=== PATIENT | female | born 1945 | race Two or more races ===

== ENCOUNTER 2024-01-30 13:30 | Inpatient (IN) | payer MEDICARE, OTHER ==
[~2024-01-30] VITALS: Ht 160 cm; Wt 72.4 kg
[~2024-01-30 13:30] MED LIST: CHOL50004 PO; FERR1TAB8 PO; FURO40TA4 PO; PANT40T PO; POTA8TAB38 PO; SPIR25TA8 PO
[2024-01-30] MEDS: ONDANSETRON HCL 4 MG/2 ML VIAL IV ONE (14:15)
[2024-01-30] MEDS: ACETAMINOPHEN 325 MG TAB PO ONE (14:15)
[2024-01-30 15:30] LABS: Urine Bacteria None Seen /hpf (None Seen)
[2024-01-30 15:38] LABS: Urine Blood Negative /uL (Negative); Urine Clarity Clear (Clear); Urine Color Orange (Yellow); Urine Hyaline Cast FEW /lpf (0 - 2); Urine Mucus FEW (None Seen); Urine Protein, UAD TRACE (Negative); Urine Urobilinogen Normal (Negative); Urine WBC 7 /hpf (0 - 5); Urine pH 5.5 (5.0-9.0)
--- NOTE | 2024-01-30 15:40 | ED.PDOC ---
General HPI Comments 78Y F with PMHx DM, CHF, HTN, PNA, cirrhosis, and gallstones presents to ED for chief complaint urinary frequency. Per pt's , pt has been unable to sleep due to going to the bathroom every hour to urinate. Additional symptoms include weakness and body pain. Pt has been experiencing the symptoms for a few weeks but they have worsened in the last few days. Per , pt is unable to get out of bed without help. Pt's also states that he hears fluid in the lungs while pt is sleeping. Chief Complaint: Urinary Time Seen by MD: 14:00 Primary Care Provider: NATHALIA Conner notes: Medications, Allergies Allergies: Coded Allergies: Tetanus Toxoids (Verified Allergy, Unknown, 01/30/24) Information Source: Patient, Spouse Mode of Arrival: Wheelchair Severity: Moderate Inability to void: None Timing: Weeks Duration: Since onset Onset: Spontaneous Symptoms: Frequency History of: None Location: None Modifying factors: None associated signs and symptoms: Frequency, Other Past Medical History PAST MEDICAL HISTORY: CHF, DM, Gallstones, HTN, Liver Past Medical History (Other): pneumonia Surgical History: Denies all surgeries DEPUTY CLERK History: No Pertinent DEPUTY CLERK History Family History Family History: Family hx of DM, Family hx of heart linus Social History Smoker: Non-Smoker Alcohol: Denies ETOH Use Drugs: Denies Drug Use Lives In: Home Constitutional: reports: weakness, others (body pains); denies: chills, diaphoresis, fatigue, fever, malaise, sweats EENTM: denies: blurred vision, double vision, ear bleeding, ear discharge, ear drainage, ear pain, ear ringing, eye pain, eye redness, hearing loss, mouth pain, mouth swelling, nasal discharge, nose bleeding, nose congestion, nose pain, photophobia, tearing, throat pain, throat swelling, voice changes, others Respiratory: denies: cough, hemoptysis, orthopnea, SOB at rest, shortness of breath, SOB with excertion, stridor, wheezing, others Cardiovascular: denies: chest pain, dizzy spells, diaphoresis, Dyspnea on exertion, edema, irregular heart beat, left arm pain, lightheadedness, palpitations, PND, syncope, others Gastrointestinal: denies: abdomen distended, abdominal pain, blood streaked bowels, constipated, diarrhea, dysphagia, difficulty swallowing, hematemesis, melena, nausea, poor appetite, poor fluid intake, rectal bleeding, rectal pain, vomiting, others Genitourinary: reports: frequency, others (nocturia); denies: abnormal vagina bleeding, burning, dyspareunia, dysuria, flank pain, hematuria, incontinence, pain, , vagina discharge, urgency Neurological: denies: dizziness, fainting, headache, left sided numbness, left sided weakness, numbness, paresthesia, pre-existing deficit, right sided num bness, right sided weakness, seizure, speech problems, tingling, tremors, weakness, others Musculoskeletal: denies: back pain, gout, joint pain, joint swelling, muscle pain, muscle stiffness, neck pain, others Integumetry: denies: bruises, change in color, change in hair/nails, dryness, laceration, lesions, lumps, rash, wounds, others Allergic/Immunocompromised: denies: Difficulty Healing, Frequent Infections, Hives, Itching, others Hematologic/Lymphatic: denies: anemia, blood clots, easy bleeding, easy bruising, swollen glands, others Endocrine: denies: excessive hunger, excessive sweating, excessive thirst, excessive urination, flushing, intolerance to cold, intolerance to heat, unexplained weight gain, unexplained weight loss, others Psychiatric: denies: anxiety, bipolar disorder, depression, hopeless, panic disorder, schizophrenia, sleepless, suicidal, others All Other Systems: Reviewed and Negative Physical Exam General Appearance: No Apparent Distress, Normal HEENT: Normal ENT Inspection, Pharynx Normal, TMs Normal Neck: Full Range of Motion, Non-Tender, Normal, Normal Inspection Respiratory: Chest Non-Tender, Lungs Clear, No Accessory Muscle Use, No Respiratory Distress, Normal Breath Sounds Cardiovascular: No Edema, No JVD, No Murmur, No Gallop, Normal Peripheral Pulses, Regular Rate/Rhythm Breast Exam: Deferred Gastrointestinal: No Organomegaly, Non Tender, No Pulsatile Mass, Normal Bowel Sounds, Soft Genitalia: Deferred Pelvic: Deferred Rectal: Deferred Extremities: No calf tenderness, Normal capillary refill, Normal inspection, Normal range of motion, Non-tender, No pedal edema Musculoskeletal : Apperance: Normal Neurologic: Alert, electroplating technician II-XII nml as Tested, No Motor Deficits, Normal Affect, Normal Mood, No Sensory Deficits Cerebellar Function: NOT DONE Reflexes: NOT DONE Skin: Dry, Normal Color, Warm Lymphatic: No Adenopathy Was a procedure done? Was a procedure done?: No Differential Diagnosis Kidney stone (Female): Urinary obstruction, Urolithiasis Kidney stone (Male): N/A Penile/Scrotal: N/A Urinary Problem (Male): N/A Urinary Problem (Female): UTI X-Ray, Labs, Meds, VS Vital Signs Date Time Temp Pulse Resp B/P (MAP) Pulse Ox O2 Delivery O2 Flow Rate FiO2 01/30/24 13:57 72 01/30/24 13:50 98.8 72 16 103/47 (65) 96 Lab Test 01/30/24 15:32 01/30/24 13:52 01/30/24 13:50 Range/Units White Blood Count 5.7 4.4-10.8 10^3/uL Red Blood Count 3.94 L 4.0-5.20 10^6/uL Hemoglobin 13.7 12.2-16.2 g/dL Hematocrit 39.0 36.0-46.0 % Mean Corpuscular Volume 99.0 80.0-100.0 fL Mean Corpuscular Hemoglobin 34.8 H 28.0-32.0 pg Mean Corpuscular Hemoglobin Concent 35.1 32.0-36.0 g/dL Red Cell Distribution Width 16.1 H 11.8-14.3 % Platelet Count 59 L 140-450 10^3/uL Mean Platelet Volume 9.0 6.9-10.8 fL Neutrophils (%) (Auto) 76.2 37.0-80.0 % Lymphocytes (%) (Auto) 16.7 10.0-50.0 % Monocytes (%) (Auto) 5.5 0.0-12.0 % Eosinophils (%) (Auto) 1.1 0.0-7.0 % Basophils (%) (Auto) 0.5 0.0-2.0 % Neutrophils # (Auto) 4.3 1.6-8.6 10 ^3/uL Lymphocytes # (Auto) 0.9 0.4-5.4 10 ^3/uL Monocytes # (Auto) 0.3 0-1.3 10 ^3/uL Eosinophils # (Auto) 0.1 0-0.8 10 ^3/uL Basophils # (Auto) 0 0-0.2 10 ^3/uL Nucleated Red Blood Cells 0.2 % Sodium Level 140 136-145 mmol/L Potassium Level 3.5 3.5-5.1 mmol/L Chloride Level 106 98-107 mmol/L Carbon Dioxide Level 25 20-31 mmol/L Anion Gap 9 5-15 Blood Urea Nitrogen 16 9-23 mg/dL Creatinine 0.57 0.550-1.02 mg/dL Glomerular Filtration Rate Calc 93 >90 mL/min BUN/Creatinine Ratio 28.1 H 10.0-20.0 Serum Glucose 214 H 74-106 mg/dL Calcium Level 9.2 8.7-10.4 mg/dL Troponin I High Sensitivity 3 L </=34 ng/L POC Glucose 194 H 70-106 mg/dl Urine Color [place] H Yellow Urine Clarity Clear Clear Urine pH 5.5 5.0-9.0 Urine Specific [place] 1.030 1.001-1.035 Urine Protein Trace H Negative Urine Ketones Negative Negative Urine Blood Negative Negative /uL Urine Nitrite Negative Negative Urine Bilirubin Negative Negative Urine Urobilinogen Normal Negative mg/dL Urine Leukocyte Esterase Negative Negative /uL Urine RBC 2 0 - 4 /hpf Urine WBC 7 0 - 5 /hpf Urine Squamous Epithelial Cells Mod <5 /hpf Urine Bacteria None seen None Seen /hpf Urine Hyaline Casts Few 0 - 2 /lpf Urine Mucus Few None Seen Urine Glucose 2+ H Normal mg/dL [place] [id number] Ph: [phone] DIAGNOSTIC IMAGING Diagnostic Imaging Report : [id number] Signed PATIENT: BLANCA BLACKWOOD ACCT: [id number] UNIT: [id number] : 1945 LOC: ER ROOM / BED: / AGE / SEX: 78 / F ADM STATUS: REG ER SERVICE 1407 ORDERING PHYSICIAN: RONAN OWENS MD PROCEDURE(s): CXRP - CHEST PORTABLE REASON: cough ORDER NUMBER(s): [id number], ACCESSION NUMBER(s): [id number] CHEST RADIOGRAPH Indication: cough Technique: Single frontal view of the chest was obtained Comparison: None FINDINGS: Lines and Tubes: None Lungs: Bronchovascular crowding due to low lung volumes with mild interstitial prominence. Indistinctness of the right hemidiaphragm. Pleura: No effusion. No pneumothorax. Cardiomediastinal contours: Mild cardiomegaly Bones: No acute osseous abnormality. IMPRESSION: Bronchovascular crowding with mild pulmonary vascular congestion. Trace right-sided pleural effusion with associated atelectasis / right basilar pneumonia. ATED BY: REBECCA EVANS DO DICTATED DATE/TIME: 01/30/241718 SIGNED BY: REBECCA EVANS DO SIGNED DATE/TIME: 01/30/241718 CC: Time of 1ST Reevaluation: 14:30 Reevaluation 1ST: Unchanged Patient Education/Counseling: Diagnosis, Treatment Family Education/Counseling: Diagnosis, Treatment Departure 1 Departure Time of Disposition: 17:43 (Patient presented with acute shortness of breath concerning for acute on chronic COPD Exacerbation, Pneumonia, ACS, CHF, Pneumothorax. Less likely PE, Dissection. Patient does not appear septic at this time.Data: 1. I ordered and reviewed the result of at least 3 labs including a CBC, BMP, and Troponin. 2. I independently interpreted the following tests: Chest X-ray shows a pneumonia.Risk:This patient has a high risk of morbidity due to further diagnostic testing or treatment and may suffer from respiratory or cardiac etiology . Workup reveals a pneumonia, patient will be started on antibiotics, admitted for further workup and possible expert consultation.) Impression: Primary Impression: Pneumonia Qualified Codes: J18.9 - Pneumonia, unspecified organism Additional Impressions: Dysuria Weakness Disposition: ADMITTED INPATIENT Admit to: Med Surg Condition: Serious Critical Care Note Critical Care Time?: No Stability Stability form required: No Heart Score Heart Score: Heart Score Response (Comments) Value History N/A 0 EKG N/A 0 Age N/A 0 Risk Factors N/A 0 Troponin N/A 0 Total 0 I personally scribed for RONAN OWENS MD ([facility]) on 01/30/24 at 15:40. Electronically submitted by Veronica Lewis ([facility] I personally scribed for RONAN OWENS MD ([facility]) on 01/30/24 at 17:32. Electronically submitted by Veronica Lewis ([facility]). RONAN OWENS MD Jan 30, 2024 15:40
[2024-01-30 15:57] LABS: Basophils # (auto) 0 10 ^3/uL (0-0.2); Eosinophils # (auto) 0.1 10 ^3/uL (0-0.8); Eosinophils % (auto) 1.1 % (0.0-7.0); Monocytes # (auto) 0.3 10 ^3/uL (0-1.3); Red Blood Cells 3.94 10^6/uL (4.0-5.20)
[2024-01-30 15:58] LABS: Basophils % (auto) 0.5 % (0.0-2.0); Hemoglobin 13.7 g/dL (12.2-16.2); Lymphocytes # (auto) 0.9 10 ^3/uL (0.4-5.4); Lymphocytes % (auto) 16.7 % (10.0-50.0); Mean Corpuscular Hemoglobin 34.8 pg (28.0-32.0); Mean Corpuscular Hgb Conc. 35.1 g/dL (32.0-36.0); Monocytes % (auto) 5.5 % (0.0-12.0); Neutrophils # (auto) 4.3 10 ^3/uL (1.6-8.6); Neutrophils % (auto) 76.2 % (37.0-80.0); Nucleated Red Blood Cells % 0.2 %; Platelet Count (auto) 59 10^3/uL (140-450); Red Cell Distribution Width 16.1 % (11.8-14.3); White Blood Cell 5.7 10^3/uL (4.4-10.8)
[2024-01-30 16:02] LABS: Chloride 106 mmol/L (98-107); Sodium 140 mmol/L (136-145)
[2024-01-30 16:03] LABS: Anion Gap 9 (5-15); Carbon Dioxide 25 mmol/L (20-31)
[2024-01-30 16:04] LABS: Calcium 9.2 mg/dL (8.7-10.4)
[2024-01-30 16:08] LABS: BUN/Creatinine Ratio 28.1 (10.0-20.0); Blood Urea Nitrogen 16 mg/dL (9-23)
[2024-01-30 16:14] LABS: Glucose 214 mg/dL (74-106); Potassium 3.5 mmol/L (3.5-5.1)
--- NOTE | 2024-01-30 17:21 | DVH ---
CHEST RADIOGRAPH Indication: cough Technique: Single frontal view of the chest was obtained Comparison: None FINDINGS: Lines and Tubes: None Lungs: Bronchovascular crowding due to low lung volumes with mild interstitial prominence. Indistinc tness of the right hemidiaphragm. Pleura: No effusion. No pneumothorax. Cardiomediastinal contours: Mild cardiomegaly Bones: No acute osseous abnormality. IMPRESSION: Bronchovascular crowding with mild pulmonary vascular congestion. Trace right-sided pleural effusion with associated atelectasis / right basilar pneumonia.
--- NOTE | 2024-01-30 19:19 | DVHHP2 ---
History of Present Illness Reason for Visit: Urinary frequency History of Present Illness 78-year-old with a past medical history of diabetes hypertension CHF hyperlipidemia cirrhosis and gallstones patient comes in with the evaluation for worsening issues with the urinating patient has having severe frequency weakness dehydration signs of both fluid overload as well as signs of worsening uncontrolled diabetes patient was recommended for evaluation in the ED and stated required admission for continued management and treatment Cardiovascular: CHF, HTN Pulmonary: COPD Hepatobiliary: Cirrhosis Endocrine: Diabetes Review of Systems Constitutional: Yes: Fever, Weakness; No: Chills, Sweats, Malaise, Other Eyes: No: Pain, Vision change, Conjunctivae inflammation, Eyelid inflammation, Other, Redness ENT: No: Ear pain, Ear discharge, Nose pain, Nose discharge, Nose congestion, Mouth pain, Mouth swelling, Throat pain, Throat swelling, Other Respiratory: No: Cough, Dry, Shortness of breath, SOB with excertion, Wheezing, Hemoptysis, Pleuritic Pain, Sputum, Wheezing, Other Cardiovascular: No: Chest Pain, Palpitations, Orthopnea, Paroxysmal Noc. Dyspnea, Edema, Lt Headedness, Other Gastrointestinal: Nausea, Vomiting; No: Abdominal Pain, Diarrhea, Constipation, Melena, Hematochezia, Other Genitourinary: Dysuria, Frequency; No Incontinence, No Hematuria, No Retention, No Other Musculoskeletal: No: other, neck pain, shoulder pain, arm pain, back pain, hand pain, leg pain, foot pain Skin: No: Rash, Lesions, Jaundice, Bruising, Other Neurological: No: Weakness, Numbness, Incoordination, Change in speech, Confusion, Seizures, Other Allergies: Coded Allergies: Tetanus Toxoids (Verified Allergy, Unknown, 01/30/24) Exam Vital Signs Vital Signs Date Time Temp Pulse Resp B/P (MAP) Pulse Ox O2 Delivery O2 Flow Rate FiO2 01/30/24 13:57 72 01/30/24 13:50 98.8 16 103/47 (65) 96 General Appearance: Alert, Oriented X3, Cooperative HEENT: PERRLA, EOMI Respiratory: Clear to auscultation, Normal air movement Cardiovascular: Regular rate, Normal S1, Normal S2 Abdominal: Normal bowel sounds, Soft Extremities: No clubbing, No cyanosis, No edema (Bilateral edema) Skin: No rashes, No breakdown Neuro: Normal gait, Normal speech Labs/Xrays Labs Test 01/30/24 18:11 01/30/24 15:32 01/30/24 13:52 01/30/24 13:50 Range/Units Troponin I High Sensitivity 3 L </=34 ng/L White Blood Count 5.7 4.4-10.8 10^3/uL Red Blood Count 3.94 L 4.0-5.20 10^6/uL Hemoglobin 13.7 12.2-16.2 g/dL Hematocrit 39.0 36.0-46.0 % Mean Corpuscular Volume 99.0 80.0-100.0 fL Mean Corpuscular Hemoglobin 34.8 H 28.0-32.0 pg Mean Corpuscular Hemoglobin Concent 35.1 32.0-36.0 g/dL Red Cell Distribution Width 16.1 H 11.8-14.3 % Platelet Count 59 L 140-450 10^3/uL Mean Platelet Volume 9.0 6.9-10.8 fL Neutrophils (%) (Auto) 76.2 37.0-80.0 % Lymphocytes (%) (Auto) 16.7 10.0-50.0 % Monocytes (%) (Auto) 5.5 0.0-12.0 % Eosinophils (%) (Auto) 1.1 0.0-7.0 % Basophils (%) (Auto) 0.5 0.0-2.0 % Neutrophils # (Auto) 4.3 1.6-8.6 10 ^3/uL Lymphocytes # (Auto) 0.9 0.4-5.4 10 ^3/uL Monocytes # (Auto) 0.3 0-1.3 10 ^3/uL Eosinophils # (Auto) 0.1 0-0.8 10 ^3/uL Basophils # (Auto) 0 0-0.2 10 ^3/uL Nucleated Red Blood Cells 0.2 % Sodium Level 140 136-145 mmol/L Potassium Level 3.5 3.5-5.1 mmol/L Chloride Level 106 98-107 mmol/L Carbon Dioxide Level 25 20-31 mmol/L Anion Gap 9 5-15 Blood Urea Nitrogen 16 9-23 mg/dL Creatinine 0.57 0.550-1.02 mg/dL Glomerular Filtration Rate Calc 93 >90 mL/min BUN/Creatinine Ratio 28.1 H 10.0-20.0 Serum Glucose 214 H 74-106 mg/dL Calcium Level 9.2 8.7-10.4 mg/dL POC Glucose 194 H 70-106 mg/dl Urine Color [place] H Yellow Urine Clarity Clear Clear Urine pH 5.5 5.0-9.0 Urine Specific [place] 1.030 1.001-1.035 Urine Protein Trace H Negative Urine Ketones Negative Negative Urine Blood Negative Negative /uL Urine Nitrite Negative Negative Urine Bilirubin Negative Negative Urine Urobilinogen Normal Negative mg/dL Urine Leukocyte Esterase Negative Negative /uL Urine RBC 2 0 - 4 /hpf Urine WBC 7 0 - 5 /hpf Urine Squamous Epithelial Cells Mod <5 /hpf Urine Bacteria None seen None Seen /hpf Urine Hyaline Casts Few 0 - 2 /lpf Urine Mucus Few None Seen Urine Glucose 2+ H Normal mg/dL Assessment/Plan Assessment/Plan [facility] to [facility] Urinary tract infection IV antibiotics IV hydration Urine culture History of CHF Acute on chronic CHF exacerbation With signs of fluid overload Chest x-ray shows pulmonary vascular congestion Monitor blood pressure B.i.d. 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
[2024-01-30] MEDS: VANCOMYCIN 1GM/250ML KIT 200 ML IV ONE (19:30)
[2024-01-30] MEDS: CEFEPIME 2GM/50ML NS 50 ML IV ONE (19:30)
[2024-01-30] MEDS ORDERED: VANCOMYCIN PER PHARMACY 0 MG IV SCH (19:45)
[2024-01-30] MEDS ORDERED: ONDANSETRON HCL 4 MG/2 ML VIAL IV PRN (19:45)
[2024-01-30] MEDS ORDERED: DOCUSATE SOD 100 MG CAP PO PRN (19:45)
[2024-01-30] MEDS ORDERED: MORPHINE SULFATE INJ 2 MG/ml SYRG IV PRN (19:45)
[2024-01-30] MEDS ORDERED: IPRATROPIUM BROM 0.5 MG/2.5ML INH SOL NEB PRN (19:45)
[2024-01-30] MEDS ORDERED: DEXTROSE (50%) 50ML SYRG IV PRN (19:45)
[2024-01-30] MEDS ORDERED: ALBUTEROL SULF 2.5 MG/0.5ML(0.5%) NEB SOLN NEB PRN (19:45)
[2024-01-30] MEDS ORDERED: MAALOX PLUS or MAALOX 30 ML PO PRN (19:45)
[2024-01-30] MEDS ORDERED: ACETAMINOPHEN 325 MG TAB PO PRN (19:45)
[2024-01-30] MEDS: VANCOMYCIN 500mg/100mL 100 ML IV ONE (20:15)
[2024-01-30 20:41] VITALS: PULSE 68; RESP 17; O2SAT 96
[2024-01-30] MEDS: SODIUM CHLORIDE 0.9% 1,000 ML IV ONE (20:51)
[2024-01-30 20:52] VITALS: BP 103/47; PULSE 72; RESP 16; TEMP 98.8; O2SAT 96
[2024-01-30 20:56] VITALS: O2SAT 96
[2024-01-30] MEDS: AZITHROMYCIN 250 MG TAB PO ONE (21:05)
[2024-01-30] MEDS: FUROSEMIDE 40 MG/4 ML VIAL IV SCH (22:15)
[2024-01-30] MEDS: methylPREDNISolone SOD SUCC 40 MG/ML VL IV SCH (22:15)
[2024-01-31] MEDS: InsuLIN REG 1unit/0.01ml Soln (100units/ml) SC SCH (00:23)
[2024-01-31] MEDS: ACCU-CHEK COMFORT CURVE STRIP VI SCH (00:23)
[2024-01-31 05:40] LABS: Basophils # (auto) 0 10 ^3/uL (0-0.2); Eosinophils # (auto) 0 10 ^3/uL (0-0.8); Eosinophils % (auto) 0.1 % (0.0-7.0); Hemoglobin 13.8 g/dL (12.2-16.2); Lymphocytes # (auto) 0.4 10 ^3/uL (0.4-5.4); Monocytes # (auto) 0 10 ^3/uL (0-1.3); Nucleated Red Blood Cells % 0.1 %; Platelet Count (auto) 42 10^3/uL (140-450); White Blood Cell 3.7 10^3/uL (4.4-10.8)
[2024-01-31 05:42] LABS: Basophils % (auto) 0.1 % (0.0-2.0); Hematocrit 38.3 % (36.0-46.0); Lymphocytes % (auto) 11.5 % (10.0-50.0); Mean Corpuscular Hgb Conc. 36.1 g/dL (32.0-36.0); Mean Corpuscular Volume 97.1 fL (80.0-100.0); Monocytes % (auto) 0.8 % (0.0-12.0); Neutrophils # (auto) 3.3 10 ^3/uL (1.6-8.6); Neutrophils % (auto) 87.5 % (37.0-80.0); Red Blood Cells 3.95 10^6/uL (4.0-5.20); Red Cell Distribution Width 15.9 % (11.8-14.3)
[2024-01-31 05:46] LABS: Chloride 106 mmol/L (98-107); Potassium 3.6 mmol/L (3.5-5.1); Sodium 140 mmol/L (136-145)
[2024-01-31 05:47] LABS: Anion Gap 11 (5-15); Carbon Dioxide 23 mmol/L (20-31)
[2024-01-31 05:48] LABS: Calcium 9.5 mg/dL (8.7-10.4)
[2024-01-31 05:53] LABS: Blood Urea Nitrogen 13 mg/dL (9-23)
[2024-01-31 05:58] LABS: Glucose 196 mg/dL (74-106)
[2024-01-31] MEDS: CEFEPIME 1GM/ 50ML 50 ML IV SCH (06:30)
[2024-01-31 08:00] VITALS: PULSE 73; RESP 17; O2SAT 94
--- NOTE | 2024-01-31 09:53 | ECG ---
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
[2024-01-31 10:00] VITALS: O2SAT 97
[2024-01-31] MEDS: VANCOMYCIN 1GM/250ML KIT 200 ML IV SCH (10:48)
[2024-01-31 16:24] VITALS: PULSE 74; RESP 19; O2SAT 96
[2024-01-31 16:38] VITALS: BP 105/62; PULSE 71; RESP 18; TEMP 98.3; O2SAT 98
[2024-01-31] MEDS ORDERED: FERR1TAB36 PO (17:23)
[2024-01-31] MEDS ORDERED: METF-370 PO (17:23)
[2024-01-31] MEDS ORDERED: TRAM100T32 PO (17:23)
[2024-01-31] MEDS ORDERED: PROP60CA34 PO (17:26)
[2024-01-31 19:36] LABS: Alanine Aminotransferase 19 U/L (7-40); Albumin 2.9 g/dL (3.2-4.8); Alkaline Phosphatase 81 U/L (46-116); Anion Gap 8 (5-15); Aspartate Aminotransferase 22 U/L (13-40); BUN/Creatinine Ratio 20.5 (10.0-20.0); Bilirubin, Total 3.8 mg/dL (0.2-1.0); Blood Urea Nitrogen 17 mg/dL (9-23); Calcium 9.8 mg/dL (8.7-10.4); Carbon Dioxide 25 mmol/L (20-31); Chloride 106 mmol/L (98-107); Glucose 375 mg/dL (74-106); Potassium 3.5 mmol/L (3.5-5.1); Sodium 139 mmol/L (136-145); Total Protein 5.8 g/dL (5.7-8.2)
[2024-01-31 20:00] VITALS: PULSE 104
[2024-01-31 21:00] VITALS: BP 109/56; PULSE 97; RESP 16; TEMP 98.1; O2SAT 98
--- NOTE | 2024-01-31 23:50 | DVHPN2 ---
Subjective 78-year-old with a past medical history of diabetes hypertension CHF hyperlipidemia cirrhosis and gallstones patient comes in with the evaluation for worsening issues with the urinating patient has having severe frequency weakness dehydration signs of both fluid overload as well as signs of worsening uncontrolled diabetes patient was recommended for evaluation in the ED and stated required admission for continued management and treatment update -01/30 - she doesnt not remember why she is at the hospital. she feels improved although unable to specify which symptoms. Reviewed: H&P Changes from previous H/P or p: No Changes Musculoskeletal: No other, No neck pain, No shoulder pain, No arm pain, No back pain, No hand pain, No leg pain, No foot pain Skin: No Rash, No Lesions, No Jaundice, No Bruising, No Other Objective Vitals Vital Signs Date Time Temp Pulse Resp B/P (MAP) Pulse Ox O2 Delivery O2 Flow Rate FiO2 01/31/24 22:39 102/58 01/31/24 21:00 98.1 97 16 98 98.1 01/31/24 16:24 Room Air* 0 21 Intake/Output Intake and Output 01/31/24 07:00 Intake Total 1100 ml Balance 1100 ml IV Total 1100 ml Exam GEN: Healthy appearing, well-developed, A&O x2, not alert to time. HEENT: NC/AT; MMM. CV: RRR, no m/r/g. LUNGS: Bibasilar rales ABD: Soft, NT/ND, NBS, no masses or organomegaly. EXT: skin Warm, well perfused. no rashes. No clubbing, cyanosis, or edema. Mild jaundiced skin NEURO: Ambulating with no limitations. No focal deficits. Medications Current Medications Medications Dose Ordered Sig/Katia Route Start Time Stop Time Status Last Admin Dose Admin Vancomycin HCl 0 ml @ 0 mls/hr UD IV 01/30/24 19:45 Cefepime HCl 50 ml @ 12.5 mls/hr Q8HR IV 01/31/24 06:00 01/31/24 22:53 12.5 MLS/HR Albuterol 2.5 mg Q4HPRN PRN NEB 01/30/24 19:45 Cancel Ipratropium [place] 0.5 mg Q4HPRN PRN NEB 01/30/24 19:45 Cancel Methylprednisolone Sodium Succinate 40 mg BID IV 01/30/24 22:00 01/31/24 22:53 40 MG Furosemide 40 mg BID IV 01/30/24 22:00 01/31/24 22:39 40 MG Diagnostic Test (Pha) 1 strip Q6HR 01/31/24 00:00 01/31/24 17:39 1 STRIP Insulin Human Regular Q6HR SC 01/31/24 00:00 01/31/24 17:46 20 UNITS Dextrose 50 ml UD PRN IV 01/30/24 19:45 Al Hydrox/Mg Hydrox/Simethicone 30 ml Q6HP PRN PO 01/30/24 19:45 Docusate Sodium 100 mg BIDPRN PRN PO 01/30/24 19:45 Acetaminophen 650 mg Q6HP PRN PO 01/30/24 19:45 Acetaminophen/ Hydrocodone Bitart 1 tab Q4HP PRN PO 01/30/24 19:45 Ondansetron HCl 4 mg Q4HP PRN IV 01/30/24 19:45 Morphine Sulfate 2 mg Q4HPRN PRN IV 01/30/24 19:45 Vancomycin HCl 200 ml @ 200 mls/hr Q12H IV 01/31/24 10:00 01/31/24 22:21 200 MLS/HR Laboratory Results Laboratory Tests 01/31/24 04:40 01/31/24 17:52 Chemistry Test 01/31/24 04:40 01/31/24 17:52 Calcium Level 9.5 mg/dL (8.7-10.4) 9.8 mg/dL (8.7-10.4) Albumin 2.9 g/dL (3.2-4.8) L Total Protein 5.8 g/dL (5.7-8.2) LFT Test 01/31/24 17:52 Alanine Aminotransferase (ALT) 19 U/L (7-40) Alkaline Phosphatase 81 U/L (46-116) Aspartate Amino Transferase (AST) 22 U/L (13-40) Total Bilirubin 3.8 mg/dL (0.2-1.0) H Urinalysis Test 01/30/24 13:50 Urine Color [place] (Yellow) H Urine Clarity Clear (Clear) Urine pH 5.5 (5.0-9.0) Urine Specific [place] 1.030 (1.001-1.035) Urine Protein Trace (Negative) H Urine Ketones Negative (Negative) Urine Blood Negative /uL (Negative) Urine Nitrite Negative (Negative) Urine Bilirubin Negative (Negative) Urine Urobilinogen Normal mg/dL (Negative) Urine Leukocyte Esterase Negative /uL (Negative) Urine RBC 2 /hpf (0 - 4) Urine WBC 7 /hpf (0 - 5) Urine Squamous Epithelial Cells Mod /hpf (<5) Urine Bacteria None seen /hpf (None Seen) Urine Hyaline Casts Few /lpf (0 - 2) Urine Mucus Few (None Seen) Urine Glucose 2+ mg/dL (Normal) H Labs and/or images reviewed: Labs reviewed by me, Image(s) reviewed by me Assessment/Plan Assessment/Plan update -01/30 - she doesnt not remember why she is at the hospital. she feels improved although unable to specify which symptoms. History of cirrhosis CHF Abdominal pain Cough/pneumonia - patient's pitting edema - UA without significant WBC; low concern for UTI/cystitis --CXR with pulmonary vascular congestion and possibility of pneumonia; neutrophilia present -patient with history of cirrhosis presenting with abdominal pain.; concern for possible SBP -continue Lasix to euvolemia -check ammonia level -IV antibiotics Thrombocytopenia - likely chronic due to cirrhosis -platelets are had a significant low-level but no baseline available; we will consult Hematology Diabetes-aggressive scale q.6 H Diet low-salt DVT prophylaxis-SCDs (hold chemical DVT prophylaxis due to thrombocytopenia) GI prophylaxis Pepcid 20 b.i.d. Med tele Plan discussed with: Patient My Orders Orders - JIMMY DE LA CRUZ MD Procedure Category Date Status Time * Hematology/Oncology CONS 01/31/24 Transmitted Consult 16:11 Hepatitis B Surface LAB 01/31/24 Logged Antigen 21:00 Hepatitis C Antibody LAB 01/31/24 Logged 21:00 Date of Service: Jan 31, 2024 Billing Provider: JIMMY DE LA CRUZ MD Common Visit Codes: [id number] INP/OBS CARE(HIGH) JIMMY DE LA CRUZ MD Jan 31, 2024 23:50
[2024-02-01] VITALS (8 sets, daily range): BP systolic 98–129; BP diastolic 49–67; PULSE 61–84; RESP 16–18; TEMP 90–98.2; O2SAT 93–100
[2024-02-01] MEDS: AMPICILLIN & SULBACTAM SODIUM 3 GM in SODIUM CHL 0.9% 100 ML IV SCH ×2 (00:15→09:30)
[2024-02-01 07:30] LABS: Basophils # (auto) 0 10 ^3/uL (0-0.2); Eosinophils # (auto) 0 10 ^3/uL (0-0.8); Lymphocytes # (auto) 0.3 10 ^3/uL (0.4-5.4); Mean Corpuscular Hgb Conc. 35.9 g/dL (32.0-36.0); Monocytes # (auto) 0.1 10 ^3/uL (0-1.3)
[2024-02-01 07:32] LABS: Hematocrit 33.6 % (36.0-46.0); Lymphocytes % (auto) 5.3 % (10.0-50.0); Mean Corpuscular Hemoglobin 35.1 pg (28.0-32.0); Mean Corpuscular Volume 97.8 fL (80.0-100.0); Neutrophils # (auto) 5.8 10 ^3/uL (1.6-8.6); Neutrophils % (auto) 92.7 % (37.0-80.0); Nucleated Red Blood Cells % 0.3 %; Platelet Count (auto) 37 10^3/uL (140-450); Red Blood Cells 3.43 10^6/uL (4.0-5.20); White Blood Cell 6.2 10^3/uL (4.4-10.8)
[2024-02-01 07:42] LABS: Alanine Aminotransferase 14 U/L (7-40); Albumin 2.8 g/dL (3.2-4.8); Alkaline Phosphatase 84 U/L (46-116); Calcium 9.7 mg/dL (8.7-10.4); Chloride 108 mmol/L (98-107)
[2024-02-01 07:43] LABS: Anion Gap 7 (5-15); Aspartate Aminotransferase 20 U/L (13-40); BUN/Creatinine Ratio 26.1 (10.0-20.0); Bilirubin, Total 2.5 mg/dL (0.2-1.0); Blood Urea Nitrogen 18 mg/dL (9-23); Carbon Dioxide 26 mmol/L (20-31); Glucose 289 mg/dL (74-106); Potassium 3.6 mmol/L (3.5-5.1); Sodium 141 mmol/L (136-145); Total Protein 5.5 g/dL (5.7-8.2)
--- NOTE | 2024-02-01 08:04 | DVH ---
INDICATION: assess for ascites, hepatomegaly/cirrhosis TECHNIQUE: Multiple real-time sonographic images of the abdomen were obtained. COMPARISON: None FINDINGS: The liver is heterogeneous in echogenicity. Nodular contour. The liver measures 12.1 cm. N o intrahepatic biliary ductal dilatation is noted. The gallbladder wall measures 0.2 cm and is unremarkable. Multiple gallstones. The common duct luis antonio sures 0.3 cm and is unremarkable. No pericholecystic fluid is noted. Negative sonographic jarrell's s ign. The right kidney measures 8.4 cm. No hydronephrosis. The spleen measures 14.9 cm, within normal limits. Prominent splenic vein. The pancreas is not well visualized due to obscuration from bowel gas. The visualized portions of the IVC and aorta are grossly unremarkable. IMPRESSION: 1. Cirrhosis. Splenomegaly and engorgement of the splenic vein probably related to portal hypertensi on. 2. Cholelithiasis. No sonographic evidence of acute cholecystitis.
[2024-02-01] MEDS: FUROSEMIDE 40 MG/4 ML VIAL IV SCH (09:20)
--- NOTE | 2024-02-01 09:20 | DVHINCON2 ---
Date of service: Feb 01, [address] Kaur Reason for Consultation Thrombocytopenia with a history of cirrhosis of the liver History of Present Illness 78 years old female with a history of diabetes, hypertension, congestive heart failure, hyperlipidemia and cirrhosis of the liver and gallstones. The patient was admitted with frequency of urination and severe weakness. The patient is being given IV antibiotics and IV hydration She does not know why she had cirrhosis of the liver her CBC showed a white count of 6.2 hemoglobin 12 MCV 97.8 platelets [id number] Cigarette 289 calcium 9.7 total bili 2.5 AST 20 ALT 14 alkaline phosphatase 84 total protein 5.5 albumin 2.8 hepatitis-B and C Urinalysis showed few white cells and few red cells Abdominal ultrasound showed cirrhosis of the liver and splenomegaly measuring 14.9 cm engorgement of the splenic vein probably related to portal hypertension. Cholelithiasis Chest x-ray showed bronchial vascular crowding with mild pulmonary vascular congestion. We will trace right-sided pleural effusion with associated atelectasis/right basilar pneumonia The patient does state that she is known to have thrombocytopenia and does not remember having any transfusions. She occasionally has some nosebleed and gum bleeding. No other bleeding. No bruising. No headaches nausea vomiting. No fevers night sweats. Bowels fine . Loss of weight. Has a good appetite Past Medical History Diabetes Hypertension Congestive heart failure Cirrhosis of the liver Past Surgical History Family History: Patient reports no known family medical history. Family History Unremarkable for malignancy or hematological disorders Social History Patient is lives with her No smoking drinking or drugs Allergies: Coded Allergies: Tetanus Toxoids (Verified Allergy, Unknown, 01/30/24) Home Meds Reported Medications Propranolol Hcl (Inderal La) 60 Mg Cap, 10 TAB PO DAILY, #90 CAP 1 Refill 01/31/24 Furosemide (Furosemide) 40 Mg Tab, 40 MG PO BIDD for 30 Days, MG 01/31/24 Tramadol Hcl (TRAMADOL HCL ER) 100 Mg Tab, 50 MG PO, TAB 01/31/24 Metformin Hydrochloride (Metformin Hcl) 500 Mg Tab, 1 TAB PO BID, #60 TAB 3 Refills 01/31/24 Ferrous Sulfate (Iron (Ferrous Sulfate)) 50 Mg Tab, 50 MG PO, TAB 01/31/24 Pantoprazole Sodium Sesquihydr (Pantoprazole Sodium) 40 Mg Tab, 40 MG PO, TAB 01/31/24 Current Medications Current Medications Medications (Trade) Dose Ordered Sig/Katia Route PRN Reason Start Time Stop Time Status Last Admin Vancomycin HCl 200 ml @ 200 mls/hr Q12H IV 01/31/24 10:00 02/01/24 00:12 DC 01/31/24 22:21 Famotidine (Pepcid Injection) 20 mg DAILY IV 02/01/24 10:00 Ampicillin Sodium/ Sulbactam Sodium 3 gm/Sodium Chloride 100 ml @ 100 mls/hr Q6H IV 02/01/24 00:15 02/01/24 06:26 DC Azithromycin 250 ml @ 125 mls/hr DAILY IV 02/01/24 10:00 Furosemide (Lasix Injection) 40 mg DAILY IV 02/01/24 10:00 Ampicillin Sodium/ Sulbactam Sodium 3 gm/Sodium Chloride 100 ml @ 100 mls/hr Q6H IV 02/01/24 08:00 Vital Signs Vital Signs Date Time Temp Pulse Resp B/P (MAP) Pulse Ox O2 Delivery O2 Flow Rate FiO2 02/01/24 05:00 98.2 67 17 118/49 (72) 93 98.2 01/31/24 16:24 Room Air* 0 21 Physical Exam Moderately built and nourished, in no acute distress, alert and oriented. No jaundice Head and neck: Unremarkable for any masses or neck nodes. No conjunctival or mucosal hemorrhage Lungs: Clear Cardiovascular: S1-S2 heard well Abdomen: No organomegaly, tenderness or ascites. Bowel sounds are present. Extremities: No clubbing edema cyanosis or calf tenderness. Skin: Unremarkable for petechia purpura ecchymosis Lymphadenopathy: None Neurological exam: No focal deficit Labs/Diagnostic Data Labs Test 02/01/24 06:07 02/01/24 06:00 01/30/24 18:11 01/30/24 15:32 Range/Units White Blood Count 6.2 # 4.4-10.8 10^3/uL Red Blood Count 3.43 L 4.0-5.20 10^6/uL Hemoglobin 12.0 L 12.2-16.2 g/dL Hematocrit 33.6 #L 36.0-46.0 % Mean Corpuscular Volume 97.8 80.0-100.0 fL Mean Corpuscular Hemoglobin 35.1 H 28.0-32.0 pg Mean Corpuscular Hemoglobin Concent 35.9 32.0-36.0 g/dL Red Cell Distribution Width 16.0 H 11.8-14.3 % Platelet Count 37 L 140-450 10^3/uL Mean Platelet Volume 10.1 6.9-10.8 fL Neutrophils (%) (Auto) 92.7 H 37.0-80.0 % Lymphocytes (%) (Auto) 5.3 L 10.0-50.0 % Monocytes (%) (Auto) 2.0 0.0-12.0 % Eosinophils (%) (Auto) 0.0 0.0-7.0 % Basophils (%) (Auto) 0.0 0.0-2.0 % Neutrophils # (Auto) 5.8 1.6-8.6 10 ^3/uL Lymphocytes # (Auto) 0.3 L 0.4-5.4 10 ^3/uL Monocytes # (Auto) 0.1 0-1.3 10 ^3/uL Eosinophils # (Auto) 0 0-0.8 10 ^3/uL Basophils # (Auto) 0 0-0.2 10 ^3/uL Nucleated Red Blood Cells 0.3 % Sodium Level 141 136-145 mmol/L Potassium Level 3.6 3.5-5.1 mmol/L Chloride Level 108 H 98-107 mmol/L Carbon Dioxide Level 26 20-31 mmol/L Anion Gap 7 5-15 Blood Urea Nitrogen 18 9-23 mg/dL Creatinine 0.69 0.550-1.02 mg/dL Glomerular Filtration Rate Calc 89 >90 mL/min BUN/Creatinine Ratio 26.1 H 10.0-20.0 Serum Glucose 289 H 74-106 mg/dL Calcium Level 9.7 8.7-10.4 mg/dL Total Bilirubin 2.5 H 0.2-1.0 mg/dL Aspartate Amino Transferase (AST) 20 13-40 U/L Alanine Aminotransferase (ALT) 14 7-40 U/L Alkaline Phosphatase 84 46-116 U/L Total Protein 5.5 L 5.7-8.2 g/dL Albumin 2.8 L 3.2-4.8 g/dL POC Glucose 280 H 70-106 mg/dl Troponin I High Sensitivity 3 L </=34 ng/L B-Type Natriuretic Peptide 124.15 0-100 pg/mL Test 01/30/24 13:50 Range/Units Urine Color [place] H Yellow Urine Clarity Clear Clear Urine pH 5.5 5.0-9.0 Urine Specific [place] 1.030 1.001-1.035 Urine Protein Trace H Negative Urine Ketones Negative Negative Urine Blood Negative Negative /uL Urine Nitrite Negative Negative Urine Bilirubin Negative Negative Urine Urobilinogen Normal Negative mg/dL Urine Leukocyte Esterase Negative Negative /uL Urine RBC 2 0 - 4 /hpf Urine WBC 7 0 - 5 /hpf Urine Squamous Epithelial Cells Mod <5 /hpf Urine Bacteria None seen None Seen /hpf Urine Hyaline Casts Few 0 - 2 /lpf Urine Mucus Few None Seen Urine Glucose 2+ H Normal mg/dL Assessment 1. Thrombocytopenia secondary to history of cirrhosis of the liver the etiology of cirrhosis of the liver is not known. For the etiology of thrombocytopenia may rule out other etiologies like hypothyroidism lack of B12 HIV immune destruction 2. UTI 3. Diabetes 4. Congestive heart failure 5. Hypertension Plan/Recommendation Hepatitis panel, HIV, B12, T4 TSH, DOV/double-stranded DNA The patient is advised to follow up with me as an outpatient Plan discussed with: Patient TIFFANIE GARCIA MD Feb 01, 2024 09:20
[2024-02-01] MEDS: HYDROcodone-ACET 5/325MG TAB PO PRN (09:21)
[2024-02-01] MEDS: FAMOTIDINE (10MG/ML) 2ML VL IV SCH (09:21)
[2024-02-01] MEDS: AZITHROMYCIN 500MG/ 250ML 250 ML IV SCH (09:39)
[2024-02-01 11:04] LABS: Thyroid Stimulating Hormone 0.96 uIU/mL (0.55-4.78)
[2024-02-01] MEDS: INSULIN LANTUS (GLARGINE) 1 /0.01ml (100units/ml) SC ONE (12:12)
[2024-02-01] MEDS ORDERED: InsuLIN REG 1unit/0.01ml Soln (100units/ml) SC ONE (14:30)
[2024-02-01] MEDS: InsuLIN REG 1unit/0.01ml Soln (100units/ml) IV ONE (14:33)
--- NOTE | 2024-02-01 22:16 | DVHPN2 ---
Subjective 78-year-old with a past medical history of diabetes hypertension CHF hyperlipidemia cirrhosis and gallstones patient comes in with the evaluation for worsening issues with the urinating patient has having severe frequency weakness dehydration signs of both fluid overload as well as signs of worsening uncontrolled diabetes patient was recommended for evaluation in the ED and stated required admission for continued management and treatment update -01/30 - she doesnt not remember why she is at the hospital. she feels improved although unable to specify which symptoms. - 01/31 - bedside able to offer better history. she has history of fall but recwently has become more confused and has been urinating frequenty. she has appropriate specialists for her conditions. Reviewed: H&P Changes from previous H/P or p: No Changes General: Per HPI Musculoskeletal: No other, No neck pain, No shoulder pain, No arm pain, No back pain, No hand pain, No leg pain, No foot pain Skin: No Rash, No Lesions, No Jaundice, No Bruising, No Other Objective Vitals Vital Signs Date Time Temp Pulse Resp B/P (MAP) Pulse Ox O2 Delivery O2 Flow Rate FiO2 02/01/24 21:00 98.1 65 17 115/51 (72) 100 98.1 02/01/24 08:00 Room Air* 0 21 Intake/Output Intake and Output 02/01/24 07:00 Intake Total 900 ml Output Total 0 ml Balance 900 ml Intake Oral 600 ml IV Total 300 ml Output Urine Total 0 ml # Voids 2 Exam GEN: Healthy appearing, well-developed, A&O x2, not alert to time. HEENT: NC/AT; MMM. CV: RRR, no m/r/g. LUNGS: Bibasilar rales ABD: Soft, NT/ND, NBS, no masses or organomegaly. EXT: skin Warm, well perfused. no rashes. No clubbing, cyanosis, or edema. Mild jaundiced skin NEURO: Ambulating with no limitations. No focal deficits. Medications Current Medications Medications Dose Ordered Sig/Katia Route Start Time Stop Time Status Last Admin Dose Admin Albuterol 2.5 mg Q4HPRN PRN NEB 01/30/24 19:45 Cancel Ipratropium [place] 0.5 mg Q4HPRN PRN NEB 01/30/24 19:45 Cancel Diagnostic Test (Pha) 1 strip Q6HR 01/31/24 00:00 12/3/24 17:11 1 STRIP Insulin Human Regular Q6HR SC 01/31/24 00:00 02/01/24 17:14 4 UNITS Dextrose 50 ml UD PRN IV 01/30/24 19:45 Al Hydrox/Mg Hydrox/Simethicone 30 ml Q6HP PRN PO 01/30/24 19:45 Docusate Sodium 100 mg BIDPRN PRN PO 01/30/24 19:45 Acetaminophen 650 mg Q6HP PRN PO 01/30/24 19:45 Acetaminophen/ Hydrocodone Bitart 1 tab Q4HP PRN PO 01/30/24 19:45 02/01/24 09:21 1 TAB Ondansetron HCl 4 mg Q4HP PRN IV 01/30/24 19:45 Morphine Sulfate 2 mg Q4HPRN PRN IV 01/30/24 19:45 Famotidine 20 mg DAILY IV 02/01/24 10:00 02/01/24 09:21 20 MG Azithromycin 250 ml @ 125 mls/hr DAILY IV 02/01/24 10:00 02/01/24 09:39 125 MLS/HR Furosemide 40 mg DAILY IV 02/01/24 10:00 02/01/24 09:20 40 MG Ampicillin Sodium/ Sulbactam Sodium 3 gm/Sodium Chloride 100 ml @ 100 mls/hr Q6H IV 02/01/24 08:00 02/01/24 14:37 100 MLS/HR Insulin Glargine 15 units HS SC 02/01/24 22:00 Laboratory Results Laboratory Tests 02/01/24 06:07 Chemistry Test 02/01/24 06:07 02/01/24 10:24 Albumin 2.8 g/dL (3.2-4.8) L Pending Calcium Level 9.7 mg/dL (8.7-10.4) Total Protein 5.5 g/dL (5.7-8.2) L Pending Albumin/Globulin Ratio Pending Coagulation Test 02/01/24 10:24 Prothrombin Time Diluted Pending Dilute PT Confirmation Ratio Pending Thrombin Time Pending Dilute Gabriel Viper Venom (Lupus) Pending Lupus Anticoagulant Interpretation Pending LFT Test 02/01/24 06:07 Alanine Aminotransferase (ALT) 14 U/L (7-40) Alkaline Phosphatase 84 U/L (46-116) Aspartate Amino Transferase (AST) 20 U/L (13-40) Total Bilirubin 2.5 mg/dL (0.2-1.0) H HgA1c, TSH Test 02/01/24 06:07 Thyroid Stimulating Hormone (TSH) 0.96 uIU/mL (0.55-4.78) Urinalysis Test 01/30/24 13:50 Urine Color [place] (Yellow) H Urine Clarity Clear (Clear) Urine pH 5.5 (5.0-9.0) Urine Specific [place] 1.030 (1.001-1.035) Urine Protein Trace (Negative) H Urine Ketones Negative (Negative) Urine Blood Negative /uL (Negative) Urine Nitrite Negative (Negative) Urine Bilirubin Negative (Negative) Urine Urobilinogen Normal mg/dL (Negative) Urine Leukocyte Esterase Negative /uL (Negative) Urine RBC 2 /hpf (0 - 4) Urine WBC 7 /hpf (0 - 5) Urine Squamous Epithelial Cells Mod /hpf (<5) Urine Bacteria None seen /hpf (None Seen) Urine Hyaline Casts Few /lpf (0 - 2) Urine Mucus Few (None Seen) Urine Glucose 2+ mg/dL (Normal) H Labs and/or images reviewed: Labs reviewed by me, Image(s) reviewed by me Assessment/Plan Assessment/Plan update - 01/31 - bedside able to offer better history. she has history of fall but recwently has become more confused and has been urinating frequenty. she has appropriate specialists for her conditions. acute metabolic encephalopathy History of cirrhosis history of CHF, acute on chronic diastolic heart failure exacerbation Abdominal pain SBP pneumonia gram pos, gram neg likely - patient's pitting edema - UA without significant WBC; low concern for UTI/cystitis - CXR with pulmonary vascular congestion and possibility of pneumonia; neutrophilia present - patient with history of cirrhosis presenting with abdominal pain.; concern for possible SBP - patient euvolemic, stop lasix -check ammonia level -IV antibiotics - pna vs sbp Thrombocytopenia - likely chronic due to cirrhosis -platelets are had a significant low-level but no baseline available; we will consult Hematology - hematologyt plan to f/u outpatient. Diabetes-aggressive scale q.6 H Diet low-salt DVT prophylaxis-SCDs (hold chemical DVT prophylaxis due to thrombocytopenia) GI prophylaxis Pepcid 20 b.i.d. Med tele Plan discussed with: Patient My Orders Orders - JIMMY DE LA CRUZ MD Procedure Category Date Status Time Famotidine Injection PHA 02/01/24 In Process (Pepcid Injection) 10:00 Azithromycin 500mg/ PHA 02/01/24 In Process 250ml (Zithromax 50 10:00 Abdomen Limited US 02/01/24 Resulted 06:00 Furosemide Injection PHA 02/01/24 In Process (Lasix Injection) 10:00 Ampicillin & PHA 02/01/24 In Process Sulbactam Sodium 08:00 Insulin Lantus PHA 02/01/24 In Process (Glargine) (Lantus) 22:00 Consistent DIET 02/01/24 Verified Carb(Ccho)Diabetes Lunch Blood Glucose Q2h MILLER 02/01/24 In Process 13:12 Pt Request For Service PT 02/01/24 Logged 13:23 Rapid Influenza A&B LAB 02/01/24 Logged 13:24 Covid19 Antigen Summer LAB 02/01/24 Logged Date of Service: Feb 01, 2024 Billing Provider: JIMMY DE LA CRUZ MD Common Visit Codes: [id number] INP/OBS CARE(HIGH) JIMMY DE LA CRUZ MD Feb 01, 2024 22:16
[2024-02-01] MEDS: INSULIN LANTUS (GLARGINE) 1 /0.01ml (100units/ml) SC SCH (23:12)
[2024-02-02] VITALS (7 sets, daily range): BP systolic 98–120; BP diastolic 45–60; PULSE 55–62; RESP 16–20; TEMP 36.6; O2SAT 94–99
[2024-02-02 01:27] LABS: COVID19 ANTIGEN SOFIA FIA NEGATIVE (NEGATIVE); Rapid Influenza A Negative (Negative); Rapid Influenza B Negative (Negative)
[2024-02-02 06:36] LABS: Basophils # (auto) 0 10 ^3/uL (0-0.2); Eosinophils # (auto) 0 10 ^3/uL (0-0.8); Hemoglobin 11.5 g/dL (12.2-16.2); Lymphocytes # (auto) 0.6 10 ^3/uL (0.4-5.4); White Blood Cell 3.8 10^3/uL (4.4-10.8)
[2024-02-02 06:40] LABS: Basophils % (auto) 0.1 % (0.0-2.0); Eosinophils % (auto) 0.9 % (0.0-7.0); Hematocrit 32.1 % (36.0-46.0); Lymphocytes % (auto) 16.7 % (10.0-50.0); Mean Corpuscular Hgb Conc. 35.6 g/dL (32.0-36.0); Mean Corpuscular Volume 98.1 fL (80.0-100.0); Monocytes # (auto) 0.1 10 ^3/uL (0-1.3); Monocytes % (auto) 3.7 % (0.0-12.0); Neutrophils % (auto) 78.6 % (37.0-80.0); Nucleated Red Blood Cells % 0.2 %; Platelet Count (auto) 39 10^3/uL (140-450); Red Blood Cells 3.28 10^6/uL (4.0-5.20); Red Cell Distribution Width 15.8 % (11.8-14.3)
[2024-02-02 06:52] LABS: Alanine Aminotransferase 18 U/L (7-40); Alkaline Phosphatase 78 U/L (46-116); Anion Gap 7 (5-15); Aspartate Aminotransferase 19 U/L (13-40); BUN/Creatinine Ratio 29.1 (10.0-20.0); Blood Urea Nitrogen 16 mg/dL (9-23); Calcium 9.2 mg/dL (8.7-10.4); Carbon Dioxide 29 mmol/L (20-31); Glucose 104 mg/dL (74-106); Sodium 143 mmol/L (136-145)
[2024-02-02 06:58] LABS: Albumin 2.5 g/dL (3.2-4.8); Bilirubin, Total 1.6 mg/dL (0.2-1.0); Chloride 107 mmol/L (98-107); Potassium 3.1 mmol/L (3.5-5.1)
[2024-02-02] MEDS: LACTULOSE 20Gm/30ML SOLN PO ONE (09:28)
[2024-02-02 10:07] LABS: Rheumatoid Arthritis Factor <10.0 IU/mL (<14.0)
[2024-02-02 12:06] LABS: Anti-Nuclear Antibody Direct Negative (Negative)
[2024-02-02] MEDS: POTASSIUM CHL 20 Meq TABLET PO ONE (12:37)
[2024-02-02] MEDS ORDERED: LEVO750T40 PO (16:15)
[2024-02-02] MEDS ORDERED: LACT10SO3 PO (16:15)
--- NOTE | 2024-02-02 16:20 | DVHDS2 ---
Discharge Summary Date of Admission Jan 30, 2024 at 19:39 Date of Discharge: Feb 02, 2024 Labs/Diagnostic Data: Laboratory Results Test 02/02/24 12:00 02/02/24 06:01 02/02/24 00:30 02/01/24 21:11 POC Glucose 263 mg/dl (70-106) White Blood Count 3.8 10^3/uL (4.4-10.8) Red Blood Count 3.28 10^6/uL (4.0-5.20) Hemoglobin 11.5 g/dL (12.2-16.2) Hematocrit 32.1 % (36.0-46.0) Mean Corpuscular Volume 98.1 fL (80.0-100.0) Mean Corpuscular Hemoglobin 35.0 pg (28.0-32.0) Mean Corpuscular Hemoglobin Concent 35.6 g/dL (32.0-36.0) Red Cell Distribution Width 15.8 % (11.8-14.3) Platelet Count 39 10^3/uL (140-450) Mean Platelet Volume 9.6 fL (6.9-10.8) Neutrophils (%) (Auto) 78.6 % (37.0-80.0) Lymphocytes (%) (Auto) 16.7 % (10.0-50.0) Monocytes (%) (Auto) 3.7 % (0.0-12.0) Eosinophils (%) (Auto) 0.9 % (0.0-7.0) Basophils (%) (Auto) 0.1 % (0.0-2.0) Neutrophils # (Auto) 3.0 10 ^3/uL (1.6-8.6) Lymphocytes # (Auto) 0.6 10 ^3/uL (0.4-5.4) Monocytes # (Auto) 0.1 10 ^3/uL (0-1.3) Eosinophils # (Auto) 0 10 ^3/uL (0-0.8) Basophils # (Auto) 0 10 ^3/uL (0-0.2) Nucleated Red Blood Cells 0.2 % Sodium Level 143 mmol/L (136-145) Potassium Level 3.1 mmol/L (3.5-5.1) Chloride Level 107 mmol/L (98-107) Carbon Dioxide Level 29 mmol/L (20-31) Anion Gap 7 (5-15) Blood Urea Nitrogen 16 mg/dL (9-23) Creatinine 0.55 mg/dL (0.550-1.02) Glomerular Filtration Rate Calc 94 mL/min (>90) BUN/Creatinine Ratio 29.1 (10.0-20.0) Serum Glucose 104 mg/dL (74-106) Calcium Level 9.2 mg/dL (8.7-10.4) Total Bilirubin 1.6 mg/dL (0.2-1.0) Aspartate Amino Transferase (AST) 19 U/L (13-40) Alanine Aminotransferase (ALT) 18 U/L (7-40) Alkaline Phosphatase 78 U/L (46-116) Ammonia 35 umol/L (11-32) Total Protein 5.0 g/dL (5.7-8.2) Albumin 2.5 g/dL (3.2-4.8) Influenza Type A Antigen Negative (Negative) Influenza Type B Antigen Negative (Negative) SARS-CoV-2 Antigen (Rapid) Negative (NEGATIVE) Vancomycin Level Trough 6.7 ug/mL (5-10) Test 02/01/24 10:24 02/01/24 06:07 01/30/24 18:11 01/30/24 15:32 Vitamin B12 Level 852 pg/mL (211-911) Rheumatoid Factor <10.0 IU/mL (<14.0) Anti-Nuclear Antibody Screen Negative (Negative) HIV (1&2) Antibody Negative (Negative) Lactate Dehydrogenase 204 U/L (120-246) Thyroid Stimulating Hormone (TSH) 0.96 uIU/mL (0.55-4.78) Troponin I High Sensitivity 3 ng/L (</=34) B-Type Natriuretic Peptide 124.15 pg/mL (0-100) Test 01/30/24 13:50 Urine Color [place] (Yellow) Urine Clarity Clear (Clear) Urine pH 5.5 (5.0-9.0) Urine Specific [place] 1.030 (1.001-1.035) Urine Protein Trace (Negative) Urine Ketones Negative (Negative) Urine Blood Negative /uL (Negative) Urine Nitrite Negative (Negative) Urine Bilirubin Negative (Negative) Urine Urobilinogen Normal mg/dL (Negative) Urine Leukocyte Esterase Negative /uL (Negative) Urine RBC 2 /hpf (0 - 4) Urine WBC 7 /hpf (0 - 5) Urine Squamous Epithelial Cells Mod /hpf (<5) Urine Bacteria None seen /hpf (None Seen) Urine Hyaline Casts Few /lpf (0 - 2) Urine Mucus Few (None Seen) Urine Glucose 2+ mg/dL (Normal) Other Laboratory Tests 02/02/24 06:01 Brief Hx & Hospital Course: 78-year-old with a past medical history of diabetes hypertension CHF hyperlipidemia cirrhosis and history of gallstones patient comes in with the evaluation for worsening issues with the urinating patient has having severe frequency, weakness, dehydration. bedside able to offer better history. she has history of fall and recently has become more confused and has been urinating frequenty. urine has also been darker and with foul smell. On admit, vital signs are stable. on exam patient's pitting edema bilaterally. UA without significant WBC; low concern for UTI/cystitis. CXR with pulmonary vascular congestion and possibility of pneumonia; neutrophilia present. Patient with history of cirrhosis presenting with abdominal pain.; concern for possible SBP thought unlikely but no signs of ascites. Patient is started on IV antibiotics Unasyn/azithromycin. Ammonia is also elevated although mildly. Lactulose was started and patient is improving. Patient is ambulating, tolerating p.o., improving alertness and orientation and mentation. Patient ready for discharge as per plan below. Diagnosis: Hepatic encephalopathy; acute metabolic encephalopathy from pneumonia and infection; pneumonia g-/g+ likely; atypical pneumonia possible; thrombocytopenia, chronic; chronic cirrhosis; diabetes mellitus with hyperglycemia Discharge plan: - levaquin 750mg daily x5days - lactulose 10gram 2x/day - low salt diet, fluids <1.2L daily - PCP fu, GI/hepatology fu, - Hematology referral (for thrombocytopenia) - continue other home meds not mentioned above. Visitation and planning required 35 minutes Condition at Discharge: Fair Final Diagnosis/Problems List Hepatic encephalopathy; acute metabolic encephalopathy from pneumonia; pneumonia g-/g+ likely; atypical pneumonia possible; thrombocytopenia, chronic; chronic cirrhosis Discharge Disposition: Home Discharge Instruct/Medications Diet: Cardiac 2g Na,low cholest Activity: No Restrictions, As Tolerated Follow Up/Referral: PCP fu, GI/hepatology fu, Hematology referral Medications: as below Discharge Statement: "Patient was advised to return to the ER or call 911 if any headaches, dizziness, shortness of breath, chest pain, abdominal pain, bleeding, fevers, or worsening of medical condition. Patient was counseled about treatment plan, medications, possible side effects, patientverbalized understanding. All questions were answered to the best of my ability. This discharge took greater then 30 minutes in planning, reviewing documentation, counseling the patient, and discussing with other team members." ASSESSMENT ASSESSMENT Assessment Hepatic encephalopathy; acute metabolic encephalopathy from pneumonia; pneumonia g-/g+ likely; atypical pneumonia possible; thrombocytopenia, chronic; chronic cirrhosis Date of Service: Feb 02, 2024 Billing Provider: JIMMY DE LA CRUZ MD Common Visit Codes: 06292-CXC/OBS DISCH DAY >30min JIMMY DE LA CRUZ MD Feb 02, 2024 16:20
[2024-02-02] MEDS: LACTULOSE 20Gm/30ML SOLN PO SCH (18:22)
[2024-02-03 11:15] LABS: Hepatitis B Surface Antigen Negative (Negative)
[2024-02-03 11:16] LABS: Hepatitis C Antibody Positive (Negative)
[2024-02-04 21:06] LABS: Dilute Prothrombin Time(dPT) 45.1 sec (0.0-47.6); PTT-LA 30.2 sec (0.0-43.5); Thrombin Time 20.5 sec (0.0-23.0); dPT Confirm Ratio 1.01 Ratio (0.00-1.34); dRVVT 35.6 sec (0.0-47.0)
[2024-02-04 22:06] LABS: Lupus Interpretation Comment: (.)
[2024-02-09 07:07] LABS: Albumin 2.9 g/dL (2.9-4.4); Alpha-1-Globulin 0.2 g/dL (0.0-0.4); Alpha-2-Globulin 0.5 g/dL (0.4-1.0); Gamma Globulin 1.7 g/dL (0.4-1.8); Globulin Total 3.3 g/dL (2.2-3.9); Protein Total Serum 6.2 g/dL (6.0-8.5)
== END 2024-02-02 19:20 | disposition home or self-care (01) | DRG 441 ==
LOC: ER 13:30 → OVERFLOW 19:39 → WEST WING 01-31 15:45
PROVIDERS: ADMIT Hospitalist; ATTEND Student in an Organized Health Care Education/Training Program
DX: K76.82 Hepatic encephalopathy (principal); G93.41 Metabolic encephalopathy; J15.69 Pneumonia due to other Gram-negative bacteria; J15.9 Unspecified bacterial pneumonia; I50.33 Acute on chronic diastolic (congestive) heart failure; N39.0 Urinary tract infection, site not specified; J44.0 Chronic obstructive pulmonary disease with (acute) lower respiratory infection; R65.10 Systemic inflammatory response syndrome (SIRS) of non-infectious origin without acute organ dysfunction; I11.0 Hypertensive heart disease with heart failure; K74.60 Unspecified cirrhosis of liver; E11.65 Type 2 diabetes mellitus with hyperglycemia; E78.5 Hyperlipidemia, unspecified; D69.59 Other secondary thrombocytopenia; E86.0 Dehydration; R04.0 Epistaxis; K06.8 Other specified disorders of gingiva and edentulous alveolar ridge; Z83.3 Family history of diabetes mellitus; Z79.4 Long term (current) use of insulin; Z79.899 Other long term (current) drug therapy; Z79.84 Long term (current) use of oral hypoglycemic drugs; Z88.8 Allergy status to other drugs, medicaments and biological substances
CPT/HCPCS: 36415; 71045; 76705; 80048; 80053; 80202; 81001; 82140; 82607; 82962; 83615; 83880; 84155; 84165; 84436; 84443; 84484; 85025; 85613; 85670; 85705; 85732; 86038; 86431; 86703; 86706; 86803; 87340; 87426; 87804; 93005; 97163; G0378; J1815; J3490